=== PATIENT | female | born 1985 | race Caucasian/White ===

== ENCOUNTER 2016-05-03 08:00 | Outpatient (RCR) | payer OTHER | END 2016-05-09 | disposition home or self-care (01) | LOC: PT 08:00 | PROVIDERS: ATTEND Obstetrics & Gynecology | DX: R10.2 Pelvic and perineal pain (principal); N94.12 Deep dyspareunia; N94.5 Secondary dysmenorrhea ==

== ENCOUNTER 2016-05-31 09:00 | Outpatient (RCR) | payer OTHER | END 2016-06-12 10:58 | disposition home or self-care (01) | LOC: PT 09:00 | PROVIDERS: ATTEND Obstetrics & Gynecology | DX: R10.2 Pelvic and perineal pain (principal); N94.12 Deep dyspareunia; N94.5 Secondary dysmenorrhea ==